=== PATIENT | male | born 1970 | race Caucasian/White ===

== ENCOUNTER 2017-07-26 20:30 | Emergency (ER) | payer MEDICAID, MEDICARE, OTHER ==
[~2017-07-26] VITALS: Ht 188 cm; Wt 142.3 kg
[2017-07-26] MEDS ORDERED: METF500T13 (20:46)
[2017-07-26] MEDS ORDERED: LOVA1CAP17 PO (20:46)
[2017-07-26] MEDS ORDERED: LIPI20TA PO (20:46)
[2017-07-26] MEDS ORDERED: GLIP1TAB49 (20:46)
[2017-07-26] MEDS ORDERED: SERT-138 (20:46)
[2017-07-26] MEDS ORDERED: METF10004 (20:46)
[2017-07-26] MEDS ORDERED: LISI30TA4 (20:46)
[2017-07-26] MEDS ORDERED: MIRA3350 PO (22:06)
[2017-07-26] MEDS ORDERED: COLA100C5 PO (22:06)
[2017-07-26 22:18] VITALS: BP 135/75
--- NOTE | 2017-07-27 09:06 | REP ---
Clinical: Constipation and abdominal pain. Technique: Upright view of the chest with supine and upright views of the abdomen and pelvis. Findings: Frontal upright view of the chest demonstrates no acute cardiopulmonary process or free air below the diaphragm to suspect pneumoperitoneum. Supine and upright views of the abdomen and pelvis demonstrate nonspecific bowel gas pattern without obstruction or perforation. No organomegaly. No abnormal calcifications. Skeletal structures normal for age. Impression: Nonspecific bowel gas pattern. Signed by Franki Lucas MD 07/27/2017 07:59 A
== END 2017-07-26 22:19 | disposition home or self-care (01) ==
LOC: M ED 20:30
DX: K59.00 Constipation, unspecified (principal); Z72.0 Tobacco use